=== PATIENT | female | born 1960 | race Caucasian/White ===

== ENCOUNTER 2018-04-24 09:38 | Day surgery (SDC) | payer OTHER ==
[~2018-04-24 09:38] MED LIST: ACETAMINOPHEN 1,000 MG/100 ML INJ IV ONE; BUPIVACAINE HCL 0.25%/EPI. PF 30 ML VIAL IJ ONE; CLINDAMYCIN PHOSPHATE 900 MG/6 ML VIAL ONE; DEXAMETHASONE SOD PHOS 4 MG/ML VIAL ONE; FAMOTIDINE/PF 20 MG/2 ML VIAL ONE; FENTANYL 250MCG/5ML VIAL ONE; LACTATED RINGERS 1,000 ML IV.SOLN IV ONE; LIDOCAINE HCL/PF 2% 100 MG/5 ML VIAL IJ ONE; ONDANSETRON HCL/PF 4 MG/ 2ML VIAL ONE; PROPOFOL 200 MG/20 ML VIAL IV ONE; ROCURONIUM BROMIDE 10 MG/ML 5ML VIAL ONE; SCOPOLAMINE HYDROBROMIDE 1.5MG/72HR PATCH TD ONE; SEVOFLURANE 250 ML LIQUID IH ONE; SODIUM CHLORIDE IRRIG SOLUTION 3,000 ML IRRIG.SOLN IR ONE; SUGAMMADEX 200 mg/2mL 200 MG/2 ML VIAL IV ONE
[2018-04-24] MEDS ORDERED: SCOPOLAMINE HYDROBROMIDE 1.5MG/72HR PATCH TD ONE (09:57)
[2018-04-24] MEDS ORDERED: LACTATED RINGERS 1,000 ML IV ONE (09:57)
[2018-04-24] MEDS ORDERED: FAMOTIDINE/PF 20 MG/2 ML VIAL ONE (09:57)
== END 2018-04-24 16:14 | disposition other institution (70) ==
LOC: OPSURG 09:38
PROVIDERS: ATTEND Surgery
DX: E66.01 Morbid (severe) obesity due to excess calories (principal); Z68.43 Body mass index [BMI] 50.0-59.9, adult; E11.9 Type 2 diabetes mellitus without complications; I10 Essential (primary) hypertension; K21.9 Gastro-esophageal reflux disease without esophagitis; G47.33 Obstructive sleep apnea (adult) (pediatric); F41.9 Anxiety disorder, unspecified; F32.9 Major depressive disorder, single episode, unspecified; E03.9 Hypothyroidism, unspecified
CPT/HCPCS: J1100; J2001; J2405; J2704; S0028; 43775; A9270-GY; J7120

== ENCOUNTER 2018-04-24 16:15 | Inpatient (IN) | payer OTHER ==
[2018-04-24] MEDS ORDERED: ONDANSETRON HCL/PF 4 MG/ 2ML VIAL IVP PRN (16:24)
[2018-04-24] MEDS ORDERED: KETOROLAC TROMETHAMINE 30 MG/1ML VIAL IVP PRN (16:24)
[2018-04-24] MEDS ORDERED: LEVALBUTEROL HCL 1.25 MG/3 ML AMPUL.NEB NEB PRN (16:24)
[2018-04-24] MEDS ORDERED: HYDROmorphone HCL 2 MG TABLET PO PRN (16:24)
--- NOTE | 2018-04-24 16:36 | History and Physical Report ---
History of Present Illnes - History of Present Illness Reason for Visit: Morbid obesity History of Present Illness: This is a 57 year old female from [place], [place] who presented to [facility] due to morbid obesity. She has dealt with obesity for the past 30 years and has tried diets, exercise and medications without any success in senior living weight loss. She presented today for gastric sleeve placement, which was performed today. - Past Medical History Cardiac: HTN, Hyperlipidemia Pulmonary: Sleep Apnea Gastrointestinal: GERD Psych: Anxiety, Depression Endocrine: Diabetes, Hypothyroidism, obesity, Other (Adrenal disease) - Past Surgical History Past Surgical History: Tubal Ligation, Other (knee reconstruction (bilateral)) - Past Social History Smoke: Quit Alcohol: Rare Drugs: Marijuana (Remote history) Lives: With Family Domestic Violence: Negative - Health Maintenance Health Maintenance: Cholesterol Influenza Vaccine: Current for this Influenza Season Pneumonia Vaccine: Yes Resuscitation Status: Resusciation Status Resuscitation Status Full Code - Unable to Obtain History Unable to Obtain: No Review of Systems - Review of Systems Constitutional: negative: Fever, Chills Eyes: negative: pain ENT: negative: Ear Pain, Ear Discharge Respiratory: negative: Cough, Shortness of Breath Cardiovascular: negative: Chest Pain Gastrointestinal: Nausea. negative: Vomiting Genitourinary: negative: Dysuria Musculoskeletal: negative: Neck Pain, Shoulder Pain Skin: negative: Rash Neurological: negative: Weakness, Incoordination, Change in Speech - Medications/Allergies Current Inpatient Medications: Current Inpatient Medications Hydromorphone HCl (Dilaudid) 2 mg PO Q4H PRN PRN Reason: Severe Pain Stop: 04/28/18 16:23 Clindamycin Phosphate 600 mg/ (Sodium Chloride) 104 mls @ 104 mls/hr IV Q8 FRANCES Stop: 04/25/18 05:01 Sodium Chloride (Normal Saline) 1,000 mls @ 150 mls/hr IV Q8H FRANCES Ketorolac Tromethamine (Toradol) 30 mg IVP Q6 PRN PRN Reason: For Mild Pain Stop: 04/28/18 16:23 Levalbuterol HCl (Xopenex) 1.25 mg NEB Q4 PRN PRN Reason: SOA, Dyspnea, or Wheezing Stop: 04/28/18 16:23 Ondansetron HCl (Zofran 4 Mg/2 Ml) 4 mg IVP Q6H PRN PRN Reason: Nausea / Vomiting Stop: 04/28/18 16:23 Exam - Exam Vital Signs: Vital Signs (72 hours) 04/24/18 16:23 Temperature 98.2 F Pulse Rate [ 97 H Right] Respiratory 18 Rate Blood Pressure 164/81 [Right Arm] O2 Sat by Pulse 96 Oximetry General: Alert, Oriented to Person, Oriented to Place, Oriented to Time, Cooperative, Mild distress HEENT: Atraumatic, PERRLA, EOMI, Poor Dentition Neck: No: Stridor, Rigidity Lungs: Clear to auscultation, Normal air movement, Speaks full Sentences. No: Respiratory Distress, Wheezes Cardiovascular: Regular rate, Normal S1, Normal S2 Murmur: No: Systolic Murmur Abdomen: Normal bowel sounds, Soft, Other (All five port incision sites are dressed and dry) Genitourinary: No: Other Male Genitourinary: No: Other Female Genitourinary: No: Other Integumentary: Normal, [place], Warm Extremities: No clubbing, No cyanosis Neurological: Normal speech Psych/Mental Status: Mental status NL, Mood NL, Appropriate Affect Assessment/Plan - Assessment/Plan (1) Morbid obesity Status: Acute Current Visit: Yes Assessment: S/P Gastric sleeve (2) Hypertension Status: Acute Current Visit: Yes Assessment: Stable Plan: Continue lisinopril and HCTZ (3) Hyperlipidemia Status: Acute Current Visit: Yes Qualifiers: Hyperlipidemia type: pure hypercholesterolemia Qualified Code(s): E78.00 - Pure hypercholesterolemia, unspecified; E78.0 - Pure hypercholesterolemia Assessment: Will hold Crestor for now (4) Hypothyroidism Status: Acute Current Visit: Yes Assessment: Chronic Plan: Continue levothyroxine at 175 mcg po qd (5) Gout Status: Acute Current Visit: Yes Assessment: Continue allopurinol (6) Diabetes mellitus Status: Acute Current Visit: Yes Qualifiers: Diabetes mellitus type: type 2 Diabetes mellitus senior living insulin use: without truck terminal manager use Diabetes mellitus complication status: without complication Qualified Code(s): E11.9 - Type 2 diabetes mellitus without complications Assessment: Accuchecks Hold metformin VTE Assessment - RISK FACTOR SCORE VTE RISK FACTOR SCORES: AGE 40-60 YEARS, MAJOR SURGERY/ANESTHESIA TIME > 1 HOUR (On Lovenox and SCDs)
[2018-04-24 17:32] VITALS: BMI 53.1
[2018-04-24] MEDS: ENOXAPARIN SODIUM 40 MG/0.4 ML DISP.SYRIN SQ SCH (17:56)
[2018-04-24] MEDS: 0.9 % SODIUM CHLORIDE 1,000 ML IV SCH (19:40)
[2018-04-24] MEDS: LEVOTHYROXINE SODIUM 50 MCG TABLET PO SCH (21:27)
[2018-04-24] MEDS: CLINDAMYCIN PHOSPHATE 600 MG in 0.9 % SODIUM CHLORIDE 100 ML IV SCH (21:55)
[2018-04-24] MEDS: ZOLPIDEM TARTRATE 5 MG TABLET PO SCH ×2 (21:55→22:04)
[2018-04-25] MEDS: 0.9 % SODIUM CHLORIDE 1,000 ML IV SCH ×4 (01:13→22:33)
[2018-04-25] MEDS ORDERED: 0.9 % SODIUM CHLORIDE 100 ML IV ONE (04:37)
[2018-04-25] MEDS ORDERED: CLINDAMYCIN PHOSPHATE 300 MG/2 ML VIAL ONE (05:00)
[2018-04-25] MEDS: CLINDAMYCIN PHOSPHATE 600 MG in 0.9 % SODIUM CHLORIDE 100 ML IV SCH (05:20)
[2018-04-25] MEDS: HYDROCODONE/ACETAMINOPHEN 15 ML SOLUTION PO PRN ×3 (05:51→21:03)
[2018-04-25] MEDS: LEVOTHYROXINE SODIUM 50 MCG TABLET PO SCH (06:39)
[2018-04-25] MEDS ORDERED: LEVOTHYROXINE SODIUM 25 MCG TABLET PO SCH (07:00)
[2018-04-25 07:19] LABS: BASOPHILS % 0.2 (0.0-1.5); EOSINOPHILS % 0.8 % (0.0-6.8); MONOCYTES % 2.7 % (0.0-11.0); NEUTROPHILS # 6.2 # k/uL (1.4-7.7)
[2018-04-25 07:25] LABS: eGFR (Non-African) > 60
[2018-04-25] MEDS: HYDROCHLOROTHIAZIDE 25 MG TABLET PO SCH (08:34)
[2018-04-25] MEDS: ALLOPURINOL 100 MG TABLET PO SCH (08:34)
[2018-04-25] MEDS: LISINOPRIL 20 MG TABLET PO SCH (08:34)
[2018-04-25] MEDS: FUROSEMIDE 20 MG TABLET PO SCH (08:35)
--- NOTE | 2018-04-25 11:50 | Inpatient Progress Note ---
Subjective - Required Recertification Statement I anticipate X number of days because-include discharge plan: 1 Objective - Exam Vitals and I&O: Vital Signs Temp 98.6 F 04/25/18 08:39 Pulse 83 04/25/18 08:39 Resp 20 04/25/18 08:39 BP 131/70 04/25/18 08:39 Pulse Ox 96 04/25/18 08:39 Intake & Output 04/24/18 04/24/18 04/25/18 11:59 23:59 11:59 Intake Total 350 1440 Output Total 800 550 Balance -450 890 Weight 136.078 kg Intake: IV 185 1150 Left Forearm 185 1150 Oral 165 290 Output: Urine 800 550 Other: Voiding Method Toilet Toilet # Voids 1 # Bowel Movements 0 0 - Results Results: Laboratory Results WBC 7.10 K/ul (4.00-12.00) 04/25/18 06:34 RBC 4.17 M/ul (3.90-5.20) 04/25/18 06:34 Hgb 11.7 g/dL (12.0-16.0) L 04/25/18 06:34 Hct 35.0 % (34.5-46.5) 04/25/18 06:34 MCV 84.0 fl (80.0-100.0) 04/25/18 06:34 MCH 28.0 pg (28.0-34.0) 04/25/18 06:34 MCHC 33.4 g/dL (30.0-36.0) 04/25/18 06:34 RDW 13.8 % (11.3-14.3) 04/25/18 06:34 Plt Count 234 K/mm3 (130-400) 04/25/18 06:34 Neut % (Auto) 88.2 % (39.0-79.0) H 04/25/18 06:34 Lymph % (Auto) 8.1 % (16.0-50.0) L 04/25/18 06:34 [place] % (Auto) 2.7 % (0.0-11.0) 04/25/18 06:34 Eos % (Auto) 0.8 % (0.0-6.8) 04/25/18 06:34 Baso % (Auto) 0.2 (0.0-1.5) 04/25/18 06:34 Neut # (Auto) 6.2 # k/uL (1.4-7.7) 04/25/18 06:34 Lymph # (Auto) 0.6 # k/uL (0.6-4.0) 04/25/18 06:34 [place] # (Auto) 0.2 # k/uL (0.0-0.9) 04/25/18 06:34 Eos # (Auto) 0.1 # k/uL (0.0-0.6) 04/25/18 06:34 Baso # (Auto) 0.0 # k/uL (0.0-0.5) 04/25/18 06:34 Sodium 140 mmol/L (136-145) 04/25/18 06:34 Potassium 3.9 mmol/L (3.5-5.1) 04/25/18 06:34 Chloride 104 mmol/L (98-107) 04/25/18 06:34 Carbon Dioxide 25 mmol/L (22-30) 04/25/18 06:34 BUN 13 mg/dL (7-17) 04/25/18 06:34 Creatinine 0.60 mg/dL (0.52-1.04) 04/25/18 06:34 Estimated Creat Clear 267 04/25/18 06:34 Est GFR ( Amer) > 60 (60-) 04/25/18 06:34 Est GFR (Non-Af Amer) > 60 (60-) 04/25/18 06:34 Glucose 159 mg/dL (74-106) H 04/25/18 06:34 Calcium 9.0 mg/dL (8.4-10.2) 04/25/18 06:34 Total Bilirubin 0.5 mg/dL (0.2-1.3) 04/25/18 06:34 AST 30 U/L (15-46) 04/25/18 06:34 ALT 31 U/L (13-69) 04/25/18 06:34 Alkaline Phosphatase 83 U/L (38-126) 04/25/18 06:34 Total Protein 6.3 g/dL (6.3-8.2) 04/25/18 06:34 Albumin 3.9 g/dL (3.5-5.0) 04/25/18 06:34 Assessment/Plan - Assessment/Plan (1) Morbid obesity Status: Acute Current Visit: Yes (2) Hypertension Status: Acute Current Visit: Yes Qualifiers: Hypertension type: essential hypertension Qualified Code(s): I10 - Essential (primary) hypertension Assessment: Well controlled (3) Hyperlipidemia Status: Acute Current Visit: Yes Qualifiers: Hyperlipidemia type: pure hypercholesterolemia Qualified Code(s): E78.00 - Pure hypercholesterolemia, unspecified; E78.0 - Pure hypercholesterolemia (4) Hypothyroidism Status: Acute Current Visit: Yes Assessment: Continue current dose of levothyroxine (5) Gout Status: Acute Current Visit: Yes Assessment: Continue allopurinol (6) Diabetes mellitus Status: Acute Current Visit: Yes Qualifiers: Diabetes mellitus type: type 2 Diabetes mellitus intermission coordinator insulin use: without intermission coordinator use Diabetes mellitus complication status: without complication Qualified Code(s): E11.9 - Type 2 diabetes mellitus without complications Assessment: Blood sugars fairly well controlled
[2018-04-25] MEDS: ENOXAPARIN SODIUM 40 MG/0.4 ML DISP.SYRIN SQ SCH (16:44)
[2018-04-25] MEDS: ZOLPIDEM TARTRATE 5 MG TABLET PO SCH (21:14)
[2018-04-26] MEDS: 0.9 % SODIUM CHLORIDE 1,000 ML IV SCH (04:17)
[2018-04-26] MEDS: LEVOTHYROXINE SODIUM 50 MCG TABLET PO SCH (06:15)
[2018-04-26] MEDS: ALLOPURINOL 100 MG TABLET PO SCH (08:29)
[2018-04-26] MEDS: LISINOPRIL 20 MG TABLET PO SCH (08:30)
[2018-04-26] MEDS: HYDROCHLOROTHIAZIDE 25 MG TABLET PO SCH (08:31)
[2018-04-26] MEDS: FUROSEMIDE 20 MG TABLET PO SCH (08:31)
[2018-04-26] MEDS: HYDROCODONE/ACETAMINOPHEN 15 ML SOLUTION PO PRN (08:36)
[2018-04-26 09:05] VITALS: BP 164/72
--- NOTE | 2018-04-26 11:49 | Discharge Summary ---
Discharge Summary - Discharge Sumary History of Present Illness: This is a 57 year old female from [place], [place] who presented to [facility] due to morbid obesity. She has dealt with obesity for the past 30 years and has tried diets, exercise and medications without any success in [place] weight loss. She presented today for gastric sleeve placement, which was performed today. Condition at Discharge: Stable Home Medications: Ambulatory Orders Medication Instructions Recorded Allopurinol [Zyloprim] 100 mg PO QD 04/24/18 Furosemide [Lasix] 20 mg PO DAILY 04/24/18 Hydrochlorothiazide [Hydrodiuril] 25 mg PO DAILY 04/24/18 Levothyroxine Sodium 175 mcg PO AM 04/24/18 Lisinopril 20 mg PO DAILY 04/24/18 Meloxicam 15 mg PO DAILY 04/24/18 Metformin HCl [Glucophage] 500 mg PO BID 04/24/18 Potassium Chloride [Klor-Con M20] 20 meq PO DAILY PRN 04/24/18 Rosuvastatin Calcium 10 mg PO DAILY 04/24/18 Zolpidem Tartrate 10 mg PO HS 04/24/18 Hydrocodone/Acetaminophen [Hycet 15 ml PO Q4H PRN #300 ml 04/25/18 7.5 mg-325 mg/15 ml Soln] Omeprazole 20 mg PO DAILY #30 capsule. 04/25/18 Ondansetron HCl Rapdis [Zofran Odt] 4 mg PO Q6 PRN #20 tab 04/25/18 Consultations this Visit: None Procedures this Visit: Other (S/P Gastric Sleeve) Allergies/Adverse Reactions: Allergies Allergy/AdvReac Type Severity Reaction Status Date / Time cephalexin [From Keflex] Allergy Verified 04/24/18 18:44 codeine Allergy Verified 04/24/18 18:44 triamcinolone [From Kenalog] Allergy Verified 04/24/18 18:44 Patient Problems: Current Active Problems Problem Status Onset Diabetes mellitus Acute Gout Acute Hyperlipidemia Acute Hypertension Acute Hypothyroidism Acute Morbid obesity Acute S/P gastric surgery Acute Discharge Summary: Patient was started on routine postoperative care. Patient had some mild nausea and required a few dose of Zofran which patient tolerated well. Patient has done well transitioning from IV to oral pain medication. She has been ambulating frequently, using Incentive spirometer. We were able to hold diabetic medication with blood sugars running < 130. Blood pressure medication was continued during hospitalization with last BP 164/72. Patient otherwise had an uneventful postoperative course. Patient has many comorbities that appear to be stable on home medications. Patient was instructed to keep journal of blood sugars and blood pressure daily and take to follow up appointment. Patient is discharging to home with family support. Hospital Course: Patient received IV fluids until able to tolerate oral hydration. Patient transitioned from IV pain meds to oral. Frequent ambulation and frequent use of incentive spirometer. Held diabetic meds- monitored blood sugars. Continued patient blood pressure medications - Final Diagnosis (1) S/P gastric surgery Problems: Incision sites are without redness/erythema, frequent ambulation, SCDs while in bed, Lovenox to prevent DVT, IS used frequently to prevent resp. infections. Transitioning from IV to oral pain meds. Starting on Gastric Sleeve Diet Right or Left: Right (2) Morbid obesity Problems: S/P Gastric Sleeve Right or Left: Right (3) Diabetes mellitus Problems: Held diabetic med- blood sugars < 130 Right or Left: Right (4) Hypertension Problems: Continued home medication- last BP 164/72 Right or Left: Right (5) Hyperlipidemia Problems: Stable on home med Right or Left: Right (6) Gout Problems: Stable on home med Right or Left: Right (7) Hypothyroidism Problems: Stable on home med Right or Left: Right
== END 2018-04-26 11:55 | disposition home or self-care (01) | DRG 641 ==
LOC: SOUTH 16:15
PROVIDERS: ADMIT Family Medicine; ATTEND Family Medicine
DX: E66.01 Morbid (severe) obesity due to excess calories (principal); E11.9 Type 2 diabetes mellitus without complications; I10 Essential (primary) hypertension; E78.5 Hyperlipidemia, unspecified; M10.00 Idiopathic gout, unspecified site; Z32.02 Encounter for pregnancy test, result negative
CPT/HCPCS: 80053; 81025; 85025; 99231; 99232; 99238; J1650; J1885; J2405; J3490; A9270-GY; J7030